=== PATIENT | male | born 1985 | race Caucasian/White ===

== ENCOUNTER → 2024-01-11 09:33 | Outpatient (CLI) | payer BC, SELFPAY ==
[2024-01-11 12:57] LABS: Urine N gonorrhoeae NOT DETECTED
[2024-01-11 13:26] LABS: Urine Chlamydia NOT DETECTED
== END ==
PROVIDERS: Visit Provider Physician Assistant Surgical
DX: R10.9 Unspecified abdominal pain (principal); R30.0 Dysuria
CPT/HCPCS: 87086; 87491; 87591

== ENCOUNTER → 2024-01-14 07:19 | Outpatient (CLI) | payer BC, SELFPAY ==
--- NOTE | 2024-01-14 07:21 | DI.US.S_ITS ---
PROCEDURE: US SCROTUM INDICATIONS: Scrotal discomfort TECHNIQUE: Real-time scanning was performed of the scrotum and testicles, with image documentation. Color and pulse Doppler interrogation was performed of both testicles. COMPARISON: None. FINDINGS: Right: Testicle is normal in size at 4.5 x 2.5 x 3.3 cm, and homogenous in echotexture. Epididymis is normal in overall size and morphology. No hydrocele or varicoceles. Overlying scrotal skin is normal in thickness. Left: Testicle is normal in size at 4.1 x 2.6 x 3.7 cm, and homogeneous in echotexture. Epididymis is normal in overall size and morphology. No hydrocele or varicoceles. Overlying scrotal skin is normal in thickness. Doppler: Color and pulse Doppler demonstrate normal and symmetric arterial flow in both testicles. IMPRESSION: Normal appearance of the testes and epididymides. No abnormality seen within the right inguinal region. Dictated by: Rajendra Jaime M.D. on 01/14/2024 at 8:38 Approved by: Rajendra Jaime M.D. on 01/14/2024 at 8:39
== END ==
PROVIDERS: PCP Physician Assistant; Referring Provider Physician Assistant Surgical; Visit Provider Physician Assistant Surgical
DX: N50.82 Scrotal pain (principal)
CPT/HCPCS: 76870; 93975

== ENCOUNTER 2024-12-06 07:16 | Emergency (ER) | payer BC, SELFPAY ==
[2024-12-06] VITALS (10 sets, daily range): BP systolic 104–136; BP diastolic 70–90; PULSE 65–89; RESP 11–22; TEMP 36.8; O2SAT 95–99; BMI 34.2
--- NOTE | 2024-12-06 07:39 | EKG_ITS ---
[address] [address] [address] [address] Test Date: 2024-12-06 Pat Name: Todd Urbina Department: Room: Gender: Male [employer] Ad[employer]er: EDIN : [id number] Requested By: Order Number: [id number] Reading MD: Woo Robb MD Measurements Intervals [place] Rate: 82 P: 45 MS: 158 QRS: 46 QRSD: 98 T: 63 QT: 372 QTc: 434 Interpretive Statements Normal sinus rhythm Electronically Signed On 12-06-2024 9:01:23 PDT by Woo Robb MD
--- NOTE | 2024-12-06 07:39 | DI.RAD.S_ITS ---
PROCEDURE: XR CHEST 1V INDICATIONS: chest pain TECHNIQUE: One view of the chest was acquired. COMPARISON: None. FINDINGS: Surgical changes and devices: None. Lungs and pleura: Lungs are clear. No pleural effusions or pneumothorax. Mediastinum: Mediastinal contours appear normal. Heart size is normal. Bones and chest wall: No suspicious bony lesions. Overlying soft tissues appear unremarkable. IMPRESSION: No acute cardiopulmonary abnormality is seen. Dictated by: Rizwan Marshall M.D. on 12/06/2024 at 8:23 Approved by: Rizwan Marshall M.D. on 12/06/2024 at 8:23
--- NOTE | 2024-12-06 07:41 | PC.NURSE ---
IV unsuccessful attempt x 1 left AC. Labs obtained.
[2024-12-06 07:57] LABS: Add Manual Diff / Slide Review NO; Basophils Absolute Auto 0 /uL (0-100); Basophils Percent Auto 0.6 % (0-2); Eosinophils Absolute Auto 300 /uL (0-450); Eosinophils Percent Auto 4.3 % (2-4); Hematocrit 42.8 % (41-53); Hemoglobin 14.8 g/dL (13.5-17.5); Lymphocytes Absolute Auto 2500 /uL (1100-4500); Lymphocytes Percent Auto 35.9 % (25-40); Mean Corpuscular HGB Conc 34.6 % (30-36); Mean Corpuscular Hemoglobin 30.8 PG (26-34); Mean Corpuscular Volume 88.9 fL (80-100); Monocytes Absolute Auto 700 /uL (0-900); Neutrophils Absolute Auto 3500 /uL (1500-7000); Neutrophils Percent Auto 49.2 % (50-75); Platelet Count 349 X10^3/uL (150-400); Prothrombin Time 11.6 SECONDS (9.4-12.5); Red Blood Cell Count 4.81 X10^6/uL (4.5-5.9); Red Cell Distribution Width 13.6 % (11.6-14.8); White Blood Cell Count 7.1 X10^3/uL (4.5-11.0)
[2024-12-06 07:59] LABS: PTT Partial Thromboplastin Tim 26 SECONDS (25.1-36.5)
[2024-12-06 08:03] LABS: Alanine Aminotransferase 33 IU/L (<50); Albumin 4.7 g/dL (3.5-5.0); Albumin Globulin Ratio 1.7 (1.0-2.8); Alkaline Phosphatase 47 U/L (38-126); Aspartate Aminotransferase 34 IU/L (17-59); BUN Creatinine Ratio 9.2 (6-22); Bilirubin Total 0.5 mg/dL (0.2-1.3); Blood Urea Nitrogen 9 mg/dL (9-20); Calcium 9.3 mg/dL (8.4-10.2); Carbon Dioxide 21 mmol/L (22-32); Chloride 106 mmol/L (98-107); Creatine Kinase 94 U/L (55-170); Estimated Glomerular Filt Rate > 60 mL/min (>60); Globulin 2.7 g/dL (1.7-4.1); Glucose 99 mg/dL (70-99); Lipase 24 U/L (23-300); Magnesium 1.9 mg/dL (1.6-2.3); Potassium 4.1 mmol/L (3.4-5.1); Sodium 137 mmol/L (137-145); Total Protein 7.4 g/dL (6.3-8.2)
[2024-12-06 08:13] LABS: HEMOLYSIS 55 (0-50)
[2024-12-06 08:14] LABS: NT-proBNP (BNP-Adult 18+) < 20 pg/mL (<125); Troponin I < 0.012 ng/mL (0.01-0.034)
[2024-12-06] MEDS: SODIUM CHLORIDE 0.9% 1,000 ML 150 ML IV (08:30)
--- NOTE | 2024-12-06 09:51 | ED.CHESTPAIN ---
HPI - Chest Pain General Chief Complaint: Chest Pain Stated Complaint: Chest pain x 3 weeks Time Seen by Provider: 12/06/24 09:47 Source: patient, RN notes reviewed and old records reviewed Mode of arrival: Ambulatory Limitations: no limitations History of Present Illness HPI narrative: 39-year-old male history of anxiety on bupropion and Vyvanse who presents with complaint of chest discomfort which he describes has been a little bit under his neck but also radiating towards the right shoulder and down his right arm. He states symptoms started Friday throughout the entire day, he states throughout Friday as well. He notes that when he pushes on that area it seems to make it worsened when he raises his arm. Denies any pleuritic symptoms. He states it feels almost like a bruise with a an achy discomfort. He notes he did not have episode November 11 where he woke up feeling short of breath like his throat was constricted had a similar sensation in his upper chest. He states a week ago he has a little bit of a similar sensation at that time as well. He denies any fevers or chills, no cold cough or congestion symptoms no nausea or vomiting. States no syncope or lightheadedness. No diaphoresis. Exertion does not make his symptoms worse. he notes that he was started developed little tingling and numbness in his thumb and 2nd finger down his arm in the last 24 hours. States he was able to saw down large limb this without any issues. Denies any new swelling in his extremities. States he takes bupropion and Vyvanse as daily medications he notes they decreased his Vyvanse about a month ago. States he was had prior tonsillectomy. No other surgeries. No known drug allergies. No tobacco, alcohol or recreational drugs reported. Patient states no long distance travel or other high-risk factors for blood clots. Notes family history of cardiac issues with great grandfather and his grandfather on the paternal side but no other reported cardiac, embolic or vascular issues. Patient did have a physical with the his primary care physician on . Related Data Home Medications ?Medication ?Instructions ?Recorded ?Confirmed bupropion HCl 150 mg 24 hr tablet, 150 mg PO QAM 01/11/24 01/11/24 extended release lisdexamfetamine 60 mg capsule 60 mg PO DAILY 01/11/24 01/11/24 (Vyvanse) Allergies Allergy/AdvReac Type Severity Reaction Status Date / Time No Known Drug Allergies Allergy Unverified 12/06/24 07:25 Review of Systems Review of Systems ROS Unobtainable: All systems reviewed & are unremarkable except as noted in HPI and below Patient History Social History Smoking Status: Never smoker Smoking Status: Never smoker Exam Narrative Exam Narrative: GENERAL: Alert and oriented x three, male in mild distress, HEENT: Head normocephalic, atraumatic, EOMI, pupils reactive, face symmetric, moist mucous membranes, negative Spurling's. NECK: Supple, full range of motion CARDIOVASCULAR: Regular rate and rhythm without murmurs, rubs or gallops. Patient was some mild discomfort in the right upper chest on palpation. No skin changes, no rash erythema noted. RESPIRATORY: Breath sounds equal bilaterally, no wheezes rales or rhonchi. ABDOMEN: Soft, nontender. Normoactive bowel sounds all 4 quadrants. No guarding or rebound, rigidity, no mass : No CVA tenderness EXTREMITIES: Normal range of motion, no clubbing or edema in bilateral upper lower extremities. Neurovascularly intact NEUROLOGICAL: Cranial nerves II through XII grossly intact. Moving all extremities SKIN: Warm, dry, no petechiae, no rashes or lesions. Initial Vital Signs Initial Vital Signs: Vital Signs Pulse Rate 88 12/06/24 07:22 Blood Pressure 135/90 12/06/24 07:22 Pulse Oximetry 99 12/06/24 07:22 Scores HEART Score Heart Score history: Moderately Suspicious Heart Score EKG: Normal Heart Score Age: < 45 years old Heart Score risk factors: No known risk factors Heart Score troponin: < or = to normal limit Heart Score Total: 1 PERC Score Age greater than or equal to 50 years: No Heart rate greater than or equal to 100 bpm: No Room Air O2 Sat less than 95%: No Unilateral leg swelling: No Recent trauma or surgery: No Hemoptysis: No Prior PE or DVT: No Hormone Use: No Total PERC Score: 0 Course Orders Ordered: Discontinued Medications Aspirin (Aspirin 81 Mg Chew Tab) 324 mg PO NOW ONE Stop: 12/06/24 07:40 Last Admin: 12/06/24 07:45 Dose: Not Given Documented By: RB Sodium Chloride (Normal Saline 0.9%) 1,000 mls @ 150 mls/hr IV CONT ERICK Last Admin: 12/06/24 08:30 Dose: 150 mls/hr Documented By: HAMIDA Vital Signs Vital signs: Vital Signs - 8 hr 12/06/24 07:22 12/06/24 07:22 12/06/24 07:25 Temperature 98.2 F Pulse Rate 88 89 Respiratory Rate 20 Blood Pressure 135/90 135/90 Pulse Oximetry 99 99 Oxygen Delivery Method Room Air 12/06/24 07:30 12/06/24 07:30 12/06/24 08:00 Temperature Pulse Rate 71 70 Respiratory Rate Blood Pressure 118/79 Pulse Oximetry 98 96 Oxygen Delivery Method 12/06/24 08:00 12/06/24 08:30 12/06/24 08:30 Temperature Pulse Rate 69 Respiratory Rate 11 L Blood Pressure 106/74 109/76 Pulse Oximetry 95 Oxygen Delivery Method 12/06/24 09:00 12/06/24 09:00 Temperature Pulse Rate 72 Respiratory Rate 15 Blood Pressure 113/72 Pulse Oximetry 99 Oxygen Delivery Method MDM - Chest Pain Lab Data 12/06/24 07:37 12/06/24 07:37 Labs: Lab Results 12/06/24 12/06/24 Range/Units 07:37 09:57 WBC 7.1 (4.5-11.0) X10^3/uL RBC 4.81 (4.5-5.9) X10^6/uL Hgb 14.8 (13.5-17.5) g/dL Hct 42.8 (41-53) % MCV 88.9 (80-100) fL MCH 30.8 (26-34) PG MCHC 34.6 (30-36) % RDW 13.6 (11.6-14.8) % Plt Count 349 (150-400) X10^3/uL Neut % (Auto) 49.2 L (50-75) % Lymph % (Auto) 35.9 (25-40) % Foster % (Auto) 10.0 (3-14) % Eos % (Auto) 4.3 H (2-4) % Baso % (Auto) 0.6 (0-2) % Neut # (Auto) 3500 (8162-4967) /uL Lymph # (Auto) 2500 (9498-4907) /uL Foster # (Auto) 700 (0-900) /uL Eos # (Auto) 300 (0-450) /uL Baso # (Auto) 0 (0-100) /uL PT 11.6 (9.4-12.5) SECONDS INR 1.0 (0.9-1.3) APTT 26 (25.1-36.5) SECONDS D-Dimer < 215 (<500) ng/ml Sodium 137 (137-145) mmol/L Potassium 4.1 (3.4-5.1) mmol/L Chloride 106 (98-107) mmol/L Carbon Dioxide 21 L (22-32) mmol/L BUN 9 (9-20) mg/dL Creatinine 0.98 (0.66-1.25) mg/dL Estimated GFR > 60 (>60) mL/min BUN/Creatinine Ratio 9.2 (6-22) Glucose 99 (70-99) mg/dL Calcium 9.3 (8.4-10.2) mg/dL Magnesium 1.9 (1.6-2.3) mg/dL Total Bilirubin 0.5 (0.2-1.3) mg/dL AST 34 (17-59) IU/L ALT 33 (<50) IU/L Alkaline Phosphatase 47 (38-126) U/L Total Creatine Kinase 94 (55-170) U/L Troponin I < 0.012 < 0.012 (0.01-0.034) ng/mL NT-Pro-B Natriuret Pep < 20 (<125) pg/mL Total Protein 7.4 (6.3-8.2) g/dL Albumin 4.7 (3.5-5.0) g/dL Globulin 2.7 (1.7-4.1) g/dL Albumin/Globulin Ratio 1.7 (1.0-2.8) Lipase 24 (23-300) U/L ECG Data Attestation: I personally reviewed and interpreted this ECG as follows: Prior ECG tracings: not available for review Interpretation: Sinus rhythm rate of 82 NE 158 QRS of 98 QTC 434, no acute ST elevation or depression appreciated. No prior for comparison. MDM Narrative Medical decision making narrative: EKG shows sinus rhythm, no acute ST changes appreciated. No priors for comparison. Labs show normal white count, hemoglobin and platelets, coags are normal, CO2 is 21 electrolytes are otherwise appropriate BUN and creatinine are normal, LFTs are negative lipase is normal troponins less than 0.012 with a BNP of less than 20. Repeat troponin It was less than 0.012. dimer is negative at <215. Chest x-ray shows no acute cardiopulmonary change. heart score is 1. PERC is 0. Discharge Plan Departure Patient Disposition: Home Clinical Impression: Atypical chest pain Activity Restrictions/Additional Instructions: Some of your symptoms seem most consistent with radiculopathy I would have you follow up with your primary care physician for recheck. Please return if you have new or worsening changes, new chest pain, increasing shortness of breath, any lightheadedness or passing out, fevers, new weakness, loss of sensation or inability to lift or move your arm, persistent vomiting or other new or concerning changes. Prescriptions: No Action bupropion HCl 150 mg tablet extended release 24 hr 150 mg PO QAM lisdexamfetamine [Vyvanse] 60 mg capsule 60 mg PO DAILY Referrals: Marie Mtz PA-C [Primary Care Provider, Medical] Stand Alone Forms: Patient Portal/API
[2024-12-06 10:23] LABS: Troponin I < 0.012 ng/mL (0.01-0.034)
[2024-12-06 10:28] LABS: D Dimer < 215 ng/ml (<500)
== END 2024-12-06 11:15 | disposition home or self-care (01) ==
PROVIDERS: Emergency Provider Emergency Medicine; PCP Physician Assistant
DX: R07.89 Other chest pain (principal); R20.2 Paresthesia of skin; R20.0 Anesthesia of skin
CPT/HCPCS: 71045; 80053; 82550; 83690; 83735; 83880; 84484; 85025; 85379; 85610; 85730; 93005; 93010; 99284